=== PATIENT | male | born 1955 | race Caucasian/White ===

== ENCOUNTER 2017-10-02 20:36 | Emergency (ER) | payer OTHER ==
[~2017-10-02] VITALS: Ht 177.8 cm; Wt 75.0 kg
[~2017-10-02 20:36] MED LIST: ASPI81TA45 PO; CARV3.12 PO; DILT240C7 PO; ISOS60 PO; LISI-360 PO; NITR0.4S SL
--- NOTE | 2017-10-02 20:57 | PD ---
HPI Chief Complaint: left ankle pain Time Seen by Provider: 21:27 Travel History International Travel<30 days: No Contact w/Intl Traveler<30days: No Traveled to known affect area: No History of Present Illness HPI 61-year-old white male presents to emergency department by EMS with a lower leg cardboard splint in place after a left ankle injury. Patient states that he was stepping through his sliding glass door when he stepped on something slippery on the floor causing him to fall. He felt and heard an audible crack. He has not been able to ambulate due to pain. He has an obvious deformity to his left ankle. He states the pain is severe. Alleviated with morphine by EMS. Exacerbated by movement he denies striking his head. No neck or back pain. No chest pain or shortness of breath. No palpitations. No syncope. Patient admits to alcohol. PFSH Past Medical History Narrative Medical Hypertension, A. fib, coronary artery disease Hx Anticoagulant Therapy: Yes Arthritis: No Asthma: No Atrial Fibrillation: Yes Anxiety: No Depression: No Cancer: No Cardiovascular Problems: Yes (HTN, AFIB) Chemotherapy: No Congestive Heart Failure: No Cerebrovascular Accident: No Diabetes: No Diminished Hearing: No Endocrine: No Gastrointestinal Disorders: Yes GERD: No Genitourinary: No Hypertension: Yes Immune Disorder: No Kidney Stones: No Musculoskeletal: No Neurologic: Yes Psychiatric: No Reproductive: No Respiratory: No Immunizations Current: Yes Migraines: No Seizures: No Sleep Apnea: No Thyroid Disease: No Ulcer: No Past Surgical History Narrative Surgical Bladder surgery as a child Ear Surgery: Yes (CYST REMOVED LEFT EAR) Other Surgery: Yes (BLADDER SURGERY CHILDHOOD) Social History Alcohol Use: Yes (6-9 BEER DAILY) Tobacco Use: Yes (1 ppd) Substance Use: No Allergies-Medications (Allergen,Severity, Reaction): Coded Allergies: No Known Allergies (Verified Adverse Reaction, Unknown, 10/02/17) Reported Meds & Prescriptions Reported Meds & Active Scripts Active Percocet (Oxycodone-Acetaminophen) 5-325 mg Tab 1 Tab PO Q4H PRN Reported Nitroglycerin SL (Nitroglycerin) 0.4 Mg Subl 0.4 Mg SL DIRECTED PRN ONE TABLET UNDER THE TONGUE NEEDED FOR CHEST PAIN, MAY REPEAT EVERY FIVE MINUTES FOR A TOTAL OF 3 DOSES OR CALL 911 IF NO RELIEF Diltiazem HCl ER (Diltiazem HCl Coated Beads) 240 Mg Cap 240 Mg PO DAILY Isosorbide Mononitrate ER (Isosorbide Mononitrate) 60 Mg Tab 60 Mg PO DAILY Carvedilol 3.125 Mg Tab 3.125 Mg PO DAILY Lisinopril 30 Mg Tab 30 Mg PO DAILY Review of Systems General / Constitutional: No: Fever Eyes: No: Visual changes HENT: No: Headaches, Neck Stiffness, Neck Pain Cardiovascular: No: Chest Pain or Discomfort, Palpitations Respiratory: No: Cough, Shortness of Breath Gastrointestinal: No: Nausea, Vomiting, Abdominal Pain Genitourinary: No: Dysuria Musculoskeletal: Positive: Limited ROM, Edema, Pain Skin: No Rash Neurologic: No: Weakness, Headache, Paresthesia Psychiatric: No: Depression Endocrine: No: Polydipsia Hematologic/Lymphatic: No: Easy Bruising Physical Exam Narrative GENERAL: Well-developed, well-nourished in no apparent distress. Nontoxic appearing. HEAD: Normocephalic, atraumatic. EYES: Pupils equal round and reactive. Extraocular motions intact. No scleral icterus. No injection or drainage. ENT: Nose clear. Throat without erythema, tonsillar hypertrophy or exudate. Uvula midline. Airway patent. NECK: Trachea midline. Supple, nontender, moves head freely. No central bony tenderness or spasm. CARDIOVASCULAR: Regular rate and rhythm without murmurs, gallops, or rubs. RESPIRATORY: Clear to auscultation. Breath sounds equal bilaterally. No wheezes , rales, or rhonchi. GASTROINTESTINAL: Abdomen soft, non-tender, nondistended. No hepato-splenomegaly , or palpable masses. No guarding. EXTREMITIES: No clubbing, cyanosis. Examination of the left lower extremity reveals pain and swelling over both the medial lateral malleolus. He has mild- to-moderate swelling. Skin is intact. He has no pain in the heel, Achilles, knee or hip. He has intact sensation with good distal pulses. The right lower leg as well as her upper extremities are without localizing bony tenderness or deformity. BACK: Nontender without deformity. No flank tenderness. NEUROLOGICAL: Awake, alert and oriented x 3 .Cranial nerves grossly intact. Motor and sensory grossly within normal limits. Normal speech. Data Data Last Documented VS Vital Signs Date Time Temp Pulse Resp B/P (MAP) Pulse Ox O2 Delivery O2 Flow Rate FiO2 12/21/17 21:19 98.6 68 22 112/72 (85) Orders Orders Ankle, Complete ([id number]) (10/02/17 20:50) Ice/Cold Pack (10/02/17 20:50) Splint Or Brace Apply/Monitor (10/02/17 20:50) Chest, Single Ap (10/02/17 20:50) MDM Medical Decision Making Medical Screen Exam Complete: Yes Emergency Medical Condition: Yes Medical Record Reviewed: Yes Interpretation(s) Last 24 hours Impressions Chest X-Ray 10/02/172049 Signed Impressions: Service Date/Time: September 21:07 - CONCLUSION: The lungs are clear. Ankit Tejada MD Ankle X-Ray 10/02/172049 Signed Impressions: Service Date/Time: , October 02, 2017 21:09 - CONCLUSION: Eversion fracture dislocation of the ankle. Ankit Tejada MD Differential Diagnosis MDM: High Differential diagnoses: Fracture, sprain, strain, dislocation, contusion, neurovascular injury Narrative Course Patient has a cardboard splint has been removed from his left ankle. He has an IV in place. He was given 8 mg of morphine by EMS. Diagnosis Primary Impression: Closed left ankle fracture Qualified Codes: S82.892A - Other fracture of left lower leg, initial encounter for closed fracture Referrals: Nicho Edmondson Jr., MD 1 day Patient Instructions: Narcotic given in the ED, General Instructions Additional Instructions: Rest. Elevation. Ice packs for the next 3 days. Splint. Nonweightbearing. Medications as directed Follow-up with an orthopedist. Call his office tomorrow morning at 9:00. Return to the ER if any problems Med/Other Pt SpecificInfo: Prescription(s) given Scripts Oxycodone-Acetaminophen (Percocet) 5-325 mg Tab 1 TAB PO Q4H Y for PAIN, #30 TAB 0 Refills Prov: Madeline Vázquez Qi TERRY 10/02/17 Disposition: 01 DISCHARGE HOME Condition: Stable Sai Kwong Oct 02, 2017 20:57
[2017-10-02 21:19] VITALS: BP 112/72; PULSE 68; RESP 22; TEMP 98.6
--- NOTE | 2017-10-02 21:32 | RADRPT ---
EXAM DATE/TIME: 10/02/2017 21:07 [facility] COMPARISON: CHEST SINGLE AP, April 27, 2014, 13:15. INDICATIONS : Shortness of breath. MEDICAL HISTORY : None. SURGICAL HISTORY : None. ENCOUNTER: Initial ACUITY: 1 day PAIN SCORE: 0/10 LOCATION: Bilateral chest FINDINGS: A single view of the chest demonstrates the lungs to be symmetrically aerated without evidence of mas s, infiltrate or effusion. The cardiomediastinal contours are unremarkable. Stable healed fracture left clavicle. Stable degenerative changes in both a.c. joints.. CONCLUSION: The lungs are clear. Ankit Tejada MD on October 02, 2017 at 21:30 Board Certified Radiologist. This report was verified electronically.
--- NOTE | 2017-10-02 21:38 | RADRPT ---
EXAM DATE/TIME: 10/02/2017 21:09 [facility] COMPARISON: No previous studies available for comparison. INDICATIONS : Patient states he stepped on something and heard ankle snap. General pain, no localized pain. MEDICAL HISTORY : None. SURGICAL HISTORY : None. ENCOUNTER: Initial ACUITY: 1 day PAIN SCORE: 8/10 LOCATION: Left ankle FINDINGS: There is a displaced fracture of the tip of the medial malleolus with the fragment measuring 8 mm and displaced 5 mm inferiorly. There is an oblique mildly comminuted fracture of the distal diametaphys is of the fibula. There is disruption of the ankle mortise with medial displacement and medial widen ing of the mortise. No radiopaque foreign body seen. Mild lateral soft tissue swelling. CONCLUSION: Eversion fracture dislocation of the ankle. Ankit Tejada MD on October 02, 2017 at 21:34 Board Certified Radiologist. This report was verified electronically.
[2017-10-02] MEDS ORDERED: NITR1SUB3 SL (21:48)
[2017-10-02] MEDS ORDERED: CARV3.12 PO (21:48)
[2017-10-02] MEDS ORDERED: LISI30TA4 PO (21:48)
[2017-10-02] MEDS ORDERED: ISOS60TA PO (21:48)
[2017-10-02] MEDS ORDERED: DILT240C PO (21:48)
[2017-10-02] MEDS ORDERED: PERC5TAB12 PO (21:59)
== END 2017-10-02 22:53 | disposition home or self-care (01) ==
LOC: NEPD 20:36
DX: S82.832A Other fracture of upper and lower end of left fibula, initial encounter for closed fracture (principal); W01.0XXA Fall on same level from slipping, tripping and stumbling without subsequent striking against object, initial encounter; I10 Essential (primary) hypertension; I25.10 Atherosclerotic heart disease of native coronary artery without angina pectoris; I48.91 Unspecified atrial fibrillation; F17.200 Nicotine dependence, unspecified, uncomplicated
CPT/HCPCS: 71010; 73610; 96374; 99284; J3010

== ENCOUNTER → 2017-10-10 | Day surgery (SDC) | payer OTHER ==
--- NOTE | 2017-10-09 09:07 | MH ---
cc: Xochitl JACKSON M.D. DATE OF ADMISSION: 10/10/2017 ADMISSION DIAGNOSIS Fracture left ankle bimalleolar, now being admitted for open reduction, internal fixation. ADMISSION HISTORY AND PHYSICAL This pleasant 61-year-old male tripped and fell on his floor at home on 10/02/2017 for which he went to the Urgent Care, placed in a splint and sent to the office for followup, and found to have a displaced bimalleolar fracture. OTHER PAST HISTORY The patient has a history of atrial fib and hypertension. MEDICATION Current medications include: Lisinopril and he takes medicine he is not sure of for his atrial fib. PAST SURGICAL HISTORY Otherwise no other known surgical history noted. REVIEW OF SYSTEMS Noncontributory. FAMILY HISTORY Noncontributory. SOCIAL HISTORY The patient does smoke. He does not drink. ALLERGIES No known allergies. PHYSICAL EXAMINATION GENERAL: We find a 61-year-old male, well-developed, well-nourished, alert and oriented x3, complaining of pain in his left ankle. VITAL SIGNS: Blood pressure 118/66, pulse 88 and regular, respirations 18, temperature 98.2, pulse oximetry 98% on room air. HEENT: Eyes PERRLA, EOMI. Ears, nose, mouth clear. NECK: Supple. LUNGS: Clear. HEART: Regular rate. ABDOMEN: Soft. Positive bowel sounds, nontender. EXTREMITIES: Reveal the left ankle to be tender. Skin is intact. Neurovascularly intact to his toes. IMPRESSION AT THIS TIME Displaced left ankle fracture. PLAN Admission for open reduction, internal fixation left ankle fracture today. The patient given prescription for postoperative pain control in the office. Xochitl Jackson MD JRGiacomo/TLL /12:38 PM /8:42 AM
[~2017-10-10] VITALS: Ht 177.8 cm; Wt 75.0 kg
[~2017-10-10] MED LIST changes: +*Lactated Ringer's INJ 1,000 ML ONE; +ACETAMINOPHEN/HYDROcodone 325 MG/5 MG TAB ONE; -ASPI81TA45 PO; +BUPIVACAINE HCL PF 0.25% 30 ML VIAL ONE; +CHLORHEXIDINE GLUCONATE 2 % 1 PACK (2 CLOTHS) TOPICAL PRN; +CHLORHEXIDINE GLUCONATE 4% SOLN 120 ML BTL TOPICAL SCH; +DEXAMETHASONE SOD PHOS 4 MG/ML VIAL IV ONE; +DILT240C PO; -DILT240C7 PO; +GENTAMICIN SULFATE 80 MG/2 ML VIAL ONE; +HYDROmorphone HCL PF 1 MG/ML VIAL ONE; -ISOS60 PO; +ISOS60TA PO; +KETOROLAC TROMETHAMINE 30 MG/ML (IVP) VIAL IV PUSH ONE; +KETOROLAC TROMETHAMINE 30 MG/ML (IVP) VIAL ONE; +LACTATED RINGER'S 1000 ML IV PRN; +LIDOCAINE HCL 1% PF 5 ML AMPULE OTHER ONE; -LISI-360 PO; +LISI30TA4 PO; +MEPERIDINE HCL 25 MG/ML VIAL ONE; +MEPERIDINE HCL 50 MG/ML VIAL ONE; +METOPROLOL TARTRATE 25 MG TAB PO PRN; +MORPHINE SULFATE 2 MG/ML INJ ONE; -NITR0.4S SL; +NITR1SUB3 SL; +ONDANSETRON HCL 4 MG/2 ML VIAL IV PUSH ONE; +PERC5TAB12 PO; +PHENYLEPH/NS 1000 MCG/10 ML SYR IV ONE; +POVIDONE IODINE 5% (ANTISEPSIS KIT) 4 APPLICATIONS EACH NARE PRN; +PROPOFOL 200 MG/20 ML AMP IV ONE; +ceFAZolin 2 GM PREMIX 50 ML IV SCH; +ePHEDrine/NS 25 MG/5 ML SYRINGE IV ONE
[2017-10-10 07:44] LABS: HEMATOCRIT 43.2 % (39.0-51.0); HEMOGLOBIN 14.4 GM/DL (13.0-17.0); MEAN CELL VOLUME 103.2 FL (80.0-100.0); MEAN CORPUSCULAR HEMOGLOBIN 34.4 PG (27.0-34.0); MEAN CORPUSCULAR HGB CONC 33.3 % (32.0-36.0); MEAN PLATELET VOLUME 6.5 FL (7.0-11.0); PLATELET COUNT 274 TH/MM3 (150-450); RED BLOOD COUNT 4.19 MIL/MM3 (4.50-5.90); RED CELL DISTRIBUTION WIDTH 11.5 % (11.6-17.2); WHITE BLOOD COUNT 6.5 TH/MM3 (4.0-11.0)
[2017-10-10 07:53] LABS: BICARBONATE 24.1 MEQ/L (21.0-32.0); CALCIUM 9.4 MG/DL (8.5-10.1); PROTHROMBIN TIME - PATIENT 10.3 SEC (9.8-11.6)
[2017-10-10 07:57] LABS: CREATININE 0.87 MG/DL (0.60-1.30)
[2017-10-10 08:36] LABS: BILIRUBIN, URINE NEG (NEG); GLUCOSE,URINE NEG (NEG); KETONE, URINE 40 mg/dL (NEG); NITRITE,URINE NEG (NEG); URINE LEUKOCYTE ESTERASE NEG (NEG)
[2017-10-10 08:37] LABS: BLOOD, URINE TRACE (NEG)
[2017-10-10 08:38] LABS: URINE COLOR YELLOW (YELLW/STRAW)
[2017-10-10 08:47] LABS: MUCUS URINE MOD /lpf (OCC); SQUAMOUS EPITHELIAL CELL URINE 0-5 /hpf (0-5); WBC, URINE 0-2 /hpf (0-5)
[2017-10-10 12:15] VITALS: PULSE 96
--- NOTE | 2017-10-10 12:47 | MP ---
cc: Xochitl JULIO M.D. DATE OF SURGERY: 10/10/2017 PREOPERATIVE DIAGNOSIS: Displaced bimalleolar fracture left ankle. POSTOPERATIVE DIAGNOSIS: Displaced bimalleolar fracture left ankle. OPERATION: Open reduction, internal fixation left ankle fracture with synthes plate and screws. SURGEON: Douglas Julio MD. MARKETING CONTENT MANAGER: MARCO Smith. ANESTHESIA: General intubation. PROCEDURE FOLLOWS: Patient was brought to the operating room and placed on the operating room table in spinal position. After successful induction of general anesthesia. The patients left foot, ankle and leg were prepped and draped in the usual manner, a lateral incision was then made over the fracture site on the distal fibula, extending 5 inches in length, carried down to the subcutaneous tissue and fascia to expose the periosteum over the fracture site. The fracture site was removed using a periosteal elevator and the fracture curetted we then reduced with bone clamps while an anterior, posterior screw was inserted to fixate the fracture while a 7 hole 1/3rd semi two view side plate was applied and after all the screws were inserted and tightened AP and lateral views revealed excellent reduction of the distal fibula fracture with some mortis being reduced as well. The wound was then irrigated copiously using lactic ringer solution, meticulous hemostasis was achieved. The fascia approximated with interrupted and running 2-0 Monocryl and 3-0 Monocryl suture and subcuticular 4-0 Monocryl suture closure with Steri-Strips, sterile dressing and a ankle stirrup applied as well. No tourniquet was utilized. Estimated blood loss 50 cc. The sponge and suture count are correct and the patient tolerated the procedure well, left the operating room in stable condition and Brock LARA was present during the entire procedure to include the patients positioning and the procedure. The medical necessity and nurse practitioner and wheelchair van operator first responder was indicated in this case due to the surgical complexity of the case itself. During the surgical case the groundwater monitoring technician was working the back table while my geological survey field assistant MARCO was directly assisting me. MD UDAY Marina/liz /11:02 AM /12:11 PM
[2017-10-10 13:25] VITALS: BP 117/68; PULSE 102; RESP 16; TEMP 98.6; O2SAT 94
== END | disposition home or self-care (01) ==
LOC: PHSDC 06:29
PROVIDERS: ATTEND Surgery
DX: S82.842A Displaced bimalleolar fracture of left lower leg, initial encounter for closed fracture (principal); W01.0XXA Fall on same level from slipping, tripping and stumbling without subsequent striking against object, initial encounter; Y92.009 Unspecified place in unspecified non-institutional (private) residence as the place of occurrence of the external cause; I10 Essential (primary) hypertension; I48.91 Unspecified atrial fibrillation; F17.200 Nicotine dependence, unspecified, uncomplicated
CPT/HCPCS: 01480; 27814; 36415; 80048; 81001; 85027; 85610; C1713; J0690; J1100; J1170; J1580; J1885; J2175; J2270; J2370; J2405; J3010; J7120